=== PATIENT | male | born 1940 | race American Indian/Alaskan Native ===

== ENCOUNTER 2017-07-28 09:45 | Outpatient (CLI) | payer MEDICARE ==
--- NOTE | 2017-07-28 12:28 | Cat Scan Report ---
FINAL REPORT EXAM: CT ABDOMEN PELVIS WO CON HISTORY: PROSTATE CANCER TECHNIQUE: CT of the abdomen and pelvis was performed without intravenous contrast. Reconstructions were included in the coronal and sagittal planes. PRIORS: None. FINDINGS: Lower thorax: 2 millimeter pulmonary nodule is seen along the lateral aspect of the left lower lobe on series 2, image 20. the visualized portions of the heart are normal. Liver: The liver is normal in attenuation. No intrahepatic biliary duct dilation. Multiple simple and probable simple hepatic cysts are seen. Gallbladder/ biliary system: No cholelithiasis. The common bile duct appears nondilated. Spleen: No splenic lesions are seen. Pancreas: No pancreatic lesions are seen. No pancreatic duct dilation. Kidneys: Simple bilateral renal cysts are seen. No hydronephrosis. No renal or ureteral calcifications. Adrenal glands: No adrenal masses. Vasculature: The abdominal aorta is nondilated. Lymph nodes: No enlarged lymph nodes are seen in the abdomen or pelvis. Bowel, mesentery, peritoneum: No bowel obstruction. No free fluid or free air. The appendix is normal. Colonic diverticulosis is seen. No evidence of diverticulitis. No bowel wall thickening. Urinary bladder: No filling defects are seen. Pelvis: Surgical clips are seen in the pelvis. Prostate gland is mildly enlarged. There is a trace amount of free fluid in the pelvis. Abdominal wall: There is a small fat containing umbilical hernia. Bones: Degenerative changes are seen in the spine. Tiny sclerotic lesion in the right inferior pubic ramus most likely represents a bone island. No suspicious osseous lesions are seen. Chronic T11 compression fracture is seen. Mild retrolisthesis of T11 on T12 is noted. IMPRESSION: 1. Mild prostatic hypertrophy with several surgical clips in the pelvis. No evidence of metastatic disease to the abdomen or pelvis. 2. 2 millimeter left lower lobe pulmonary nodule. Recommend further evaluation with chest CT to exclude other nodules. 3. Simple bilateral renal cysts. 4. Several simple and probable simple hepatic cysts. 5. Colonic diverticulosis without diverticulitis.
== END 2017-07-28 09:46 | disposition home or self-care (01) ==
LOC: CT 09:45
PROVIDERS: ATTEND Urology
DX: C61 Malignant neoplasm of prostate (principal); N28.1 Cyst of kidney, acquired; K57.30 Diverticulosis of large intestine without perforation or abscess without bleeding; N40.0 Benign prostatic hyperplasia without lower urinary tract symptoms; K42.9 Umbilical hernia without obstruction or gangrene; R91.1 Solitary pulmonary nodule; M47.899 Other spondylosis, site unspecified
CPT/HCPCS: 74176